=== PATIENT | female | born 1990 | race Hispanic/Latino ===

== ENCOUNTER 2022-12-30 11:33 | Outpatient (CLI) | payer OTHER | END 2022-12-30 11:34 | disposition home or self-care (01) | LOC: CSHLAB 11:33 | PROVIDERS: ATTEND Student in an Organized Health Care Education/Training Program | DX: Z01.812 Encounter for preprocedural laboratory examination (principal); O34.219 Maternal care for unspecified type scar from previous cesarean delivery; O36.60X0 Maternal care for excessive fetal growth, unspecified trimester, not applicable or unspecified; Z53.9 Procedure and treatment not carried out, unspecified reason | CPT/HCPCS: 85014; 85018; 85049; 86593; 86780; 86850; 86900; 86901; 87340 ==

== ENCOUNTER 2023-01-02 10:48 | Inpatient (IN) | payer OTHER ==
[2022-12-30 13:15] LABS: Hematocrit 32.9 % (34.9-44.5); Hemoglobin 11.1 g/dL (12.0-15.5); Platelet Count 271 10x3/uL (150-450)
[2022-12-30 13:58] LABS: HBSAg Index 0.15 S/CO (0-0.99); Hep B Surf Ag Non-Reactive S/CO (NonReactive)
[2022-12-30 14:29] LABS: Syphilis Antibody REACTIVE (Nonreactive); Syphilis Antibody Index 21.08 S/CO (<1.00 Non-Reactive)
[2023-01-02] MEDS ORDERED: fentaNYL 50 mcg/mL 1 mL Vial ONE (11:09)
[2023-01-02] MEDS ORDERED: Dexamethasone 4 mg/ml Vial ONE (11:09)
[2023-01-02] MEDS ORDERED: Ondansetron PF 4 MG/2 ML Vial ONE (11:09)
[2023-01-02] MEDS ORDERED: Morphine PF 10 MG/10 ML VIAL ONE (11:09)
[2023-01-02] MEDS ORDERED: Oxytocin 10 UNITS/ML VIAL ONE (11:09)
[2023-01-02] MEDS ORDERED: Moisturizing Cream (Eucerin) 113 GM JAR TOP PRN (11:19)
[2023-01-02] MEDS ORDERED: Meperidine HCl/PF 25 MG/ML VIAL SLOW IVP PRN (11:19)
[2023-01-02] MEDS ORDERED: diphenhydrAMINE 50 MG/ML VIAL IVP PRN (11:19)
[2023-01-02] MEDS ORDERED: fentaNYL 50 mcg/mL 1 mL Vial SLOW IVP PRN (11:19)
[2023-01-02] MEDS ORDERED: HYDROmorphone 0.5 MG/0.5 ML SYRINGE SLOW IVP PRN (11:19)
[2023-01-02] MEDS ORDERED: Naloxone HCl 0.4 mg/ml Vial IV PRN (11:19)
[2023-01-02] MEDS ORDERED: Promethazine HCl 25 MG/ML VIAL IM PRN ×2 (11:19→11:27)
[2023-01-02] MEDS ORDERED: Promethazine HCl 25 MG SUPP PR PRN (11:19)
[2023-01-02] MEDS ORDERED: Naloxone HCl 0.4 mg/ml Vial IVP PRN ×2 (11:19)
[2023-01-02] MEDS ORDERED: Ondansetron PF 4 MG/2 ML Vial IVP PRN ×3 (11:19→11:27)
[2023-01-02] MEDS ORDERED: hydrALAZINE 20 MG/ML VIAL SLOW IVP PRN ×2 (11:27→15:59)
[2023-01-02] MEDS ORDERED: Bicitra 30 ML UDCUP PO PRN (11:27)
[2023-01-02] MEDS ORDERED: Famotidine/PF 20 mg/2ml Vial SLOW IVP PRN (11:27)
[2023-01-02] MEDS ORDERED: Lactated Ringer's 1,000 ML IV SCH (11:30)
[2023-01-02] MEDS ORDERED: Oxytocin 30 units/NS 500 ML 500 ML IV SCH (11:30)
[2023-01-02] MEDS ORDERED: Communication Order-Pharmacy FS SCH (11:30)
[2023-01-02] MEDS ORDERED: CEFAZOLIN 2 GM in Sodium Chloride 0.9% 100 ML IVPB SCH (11:30)
[2023-01-02] MEDS ORDERED: Ketorolac Tromethamine 30 MG/ML VIAL IVP SCH (11:30)
[2023-01-02 11:54] VITALS: BMI 31.4
[2023-01-02] MEDS ORDERED: CEFAZOLIN 2 GM VIAL ONE (12:00)
[2023-01-02] MEDS ORDERED: Misoprostol 200 MCG TAB ONE (12:52)
[2023-01-02] MEDS ORDERED: Simethicone Chewable 80 MG TAB PO PRN (15:59)
[2023-01-02] MEDS ORDERED: Bisacodyl 10 MG SUPP PR PRN (15:59)
[2023-01-02] MEDS ORDERED: diphenhydrAMINE 25 MG CAP PO PRN (15:59)
[2023-01-02] MEDS ORDERED: Lanolin Ointment 7 GM TUBE TOP PRN (15:59)
[2023-01-02] MEDS: Ketorolac Tromethamine 30 MG/ML VIAL IVP PRN ×2 (16:08→21:30)
[2023-01-02] MEDS ORDERED: Ferrous Sulfate 325 MG TAB PO SCH (17:00)
[2023-01-02] MEDS: Docusate 100 MG CAP PO SCH (21:30)
[2023-01-03] MEDS: Ketorolac Tromethamine 30 MG/ML VIAL IVP PRN (04:04)
[2023-01-03 04:40] LABS: Hematocrit 25.6 % (34.9-44.5); Hemoglobin 8.5 g/dL (12.0-15.5); Mean Corpuscular HGB CONC 33.2 g/dL (32.0-36.0); Mean Corpuscular Hemoglobin 31.4 pg (27.0-33.0); Mean Corpuscular Volume 94.5 fl (81.6-98.3); Mean Platelet Volume 11.2 fl (7.4-10.4); Platelet Count 225 10x3/uL (150-450); RBC Distribution Width 13.3 % (11.5-14.5); Red Blood Cell (RBC) Count 2.71 10x6/uL (3.90-5.03); White Blood Cell (WBC) Count 8.3 10x3/uL (3.5-10.5)
[2023-01-03] MEDS: Prenatal Vitamin 1 TAB PO SCH (08:01)
[2023-01-03] MEDS: Docusate 100 MG CAP PO SCH ×2 (08:01→21:42)
[2023-01-03] MEDS: HYDROcodone/Acetaminophen 5/325 mg Tablet PO PRN ×4 (08:02→21:44)
[2023-01-03] MEDS: Ibuprofen 800 MG TAB PO SCH ×2 (14:39→21:42)
[2023-01-04] MEDS: Ibuprofen 800 MG TAB PO SCH (06:32)
[2023-01-04] MEDS: HYDROcodone/Acetaminophen 5/325 mg Tablet PO PRN ×2 (06:33→11:52)
[2023-01-04 07:38] VITALS: BP 107/62; TEMP 97.6
[2023-01-04] MEDS: Prenatal Vitamin 1 TAB PO SCH (07:51)
[2023-01-04] MEDS: Docusate 100 MG CAP PO SCH (07:51)
== END 2023-01-04 12:00 | disposition home or self-care (01) | DRG 787 ==
LOC: CSHLD 10:48 → CSHPED 15:39
PROVIDERS: ADMIT Obstetrics & Gynecology; ATTEND Obstetrics & Gynecology
PROC: 10D00Z1 Extraction of Products of Conception, Low, Open Approach (ICD-10-PCS; principal; 2023-01-02)
DX: O36.63X0 Maternal care for excessive fetal growth, third trimester, not applicable or unspecified (principal); D62 Acute posthemorrhagic anemia; O98.12 Syphilis complicating childbirth; A52.8 Late syphilis, latent; O90.81 Anemia of the puerperium; Z3A.39 39 weeks gestation of pregnancy; Z37.0 Single live birth
CPT/HCPCS: 36415; 51702; 85014; 85018; 85027; 85049; 86593; 86780; 86850; 86900; 86901; 87340; J1100; J1885; J2274; J2405; J2550; J2590; J3010